=== PATIENT | female | born 1970 | race Asian ===

== ENCOUNTER 2023-10-21 20:56 | Outpatient (CLI) | payer OTHER ==
--- NOTE | 2023-10-21 22:29 | Ultrasound Report ---
PROCEDURE: Pelvic w/Transvaginal INDICATIONS: PELVIC PAIN TECHNIQUE: Real-time scanning was performed of the pelvic organs, with image documentation. Additional endovagi nal scanning was necessary due to incomplete visualization of the adnexal and endometrial structures by transabdominal scanning. COMPARISON: None. FINDINGS: Uterus: Uterus is anteverted and normal in size at 6.5 x 3.9 x 5 cm. The myometrium is heterogeneou s, no discrete uterine fibroids.. Tiny subcentimeter cyst is noted in posterior myometrium. The endom etrium measures 5.05 mm in combined thickness. Mildly heterogeneous endometrial echotexture. No disc rete endometrial mass or fluid. No intrauterine device is noted. Nabothian cyst is noted in endocervi claudia canal measures 1.1 x 0.8 cm. Ovaries: The right ovary measures 0.8 x 2.2 x 1.7 cm, with a calculated ovarian volume of 1.5 cc. T he left ovary measures 2.3 x 0.8 x 1.7 cm, with a calculated ovarian volume of 1.5 cc. The ovaries h ave a normal sonographic appearance. Less than 12 follicles can be seen in each ovary. No adnexal m asses are seen. No cystic lesions measuring greater than 3 cm. Other: No pathologic free abdominal or pelvic fluid. IMPRESSION: 1. Heterogeneous myometrium without discrete uterine fibroid. Tiny 8 x 3 mm cyst within posterior jarek metrium and is a nonspecific finding. 2. Mildly heterogeneous endometrial echotexture without discrete endometrial mass or fluid. No intrau terine device is seen. 3. No gross abnormality is seen in bilateral ovaries. Reviewed by: Nazario Geronimo MD on 10/21/2023 10:28 PM PDT Approved by: Nazario Geronimo MD on 10/21/2023 10:28 PM PDT Station ID: [id number]
== END 2023-10-21 20:57 | disposition home or self-care (01) ==
LOC: DI 20:56
PROVIDERS: ATTEND Nurse Practitioner Family
DX: N85.8 Other specified noninflammatory disorders of uterus (principal)

== ENCOUNTER 2023-12-19 09:15 | Outpatient (CLI) | payer OTHER ==
--- NOTE | 2023-12-19 15:38 | XRAY Report ---
PROCEDURE: Forearm RT INDICATIONS: PAIN IN RIGHT ARM TECHNIQUE: 2 views of the forearm were acquired. COMPARISON: None. FINDINGS: Bones: No fractures or dislocations. No suspicious bony lesions. Soft tissues: No suspicious soft tissue calcifications or masses. IMPRESSION: No acute bony abnormality. Reviewed by: Neftaly Snow MD on 12/19/2023 3:36 PM PDT Approved by: Neftaly Snow MD on 12/19/2023 3:36 PM PDT Station ID: [id number]
== END 2023-12-19 09:30 | disposition home or self-care (01) ==
LOC: DI.N 09:15
PROVIDERS: ATTEND Physician Assistant
DX: M79.601 Pain in right arm (principal)